=== PATIENT | male | born 1980 | race Caucasian/White ===

== ENCOUNTER 2024-06-30 21:18 | Emergency (ER) | payer BC, OTHER ==
[2024-06-30] MEDS: Ketorolac 30 MG/ML SDV IM ONE (22:16)
== END 2024-06-30 22:21 | disposition home or self-care (01) ==
LOC: FB.ED 21:18
DX: S61.112A Laceration without foreign body of left thumb with damage to nail, initial encounter (principal); Z88.5 Allergy status to narcotic agent; W22.8XXA Striking against or struck by other objects, initial encounter; Y93.89 Activity, other specified
CPT/HCPCS: 11740; 73140; 96372; 99283; J1885